=== PATIENT | male | born 1985 | race Caucasian/White ===

== ENCOUNTER 2022-03-07 03:17 | Emergency (ER) | payer BC ==
[~2022-03-07] VITALS: Ht 182.9 cm; Wt 181.8 kg
[~2022-03-07 03:17] MED LIST: FLONASE ALLERG9.9 ML NAS; WARFARIN SODIUM5 MG PO
--- NOTE | 2022-03-07 19:10 | EKG ---
[facility] [address] [facility] [place] [address] Signed Sinus rhythm with 1st degree AV block Otherwise normal ECG No previous ECGs available Confirmed by SHIRLENE THOMAS MD ([id number] on 03/07/2022 7:09:46 PM Electronically Signed By: SHIRLENE THOMAS MD 03/07/221909 PATIENT NAME: CANDIE GAMBINO FRANCINE Electrocardiogram DATE OF : 83 PHYSICIAN: SHIRLENE THOMAS MD REPORT #: [id number] REPORT IS CONFIDENTIAL AND NOT TO BE RELEASED WITHOUT AUTHORIZATION
== END 2022-03-07 04:55 | disposition home or self-care (01) ==
LOC: ED 03:17
DX: R07.89 Other chest pain (principal); Z86.711 Personal history of pulmonary embolism; Z79.899 Other long term (current) drug therapy; Z79.01 Long term (current) use of anticoagulants
CPT/HCPCS: 36415; 71045; 80053; 84484; 85025; 85379; 85610; 85730; 93005; 93010; 93971; 99285-25